=== PATIENT | male | born 1955 | race Caucasian/White ===

== ENCOUNTER 2020-01-04 09:04 | Inpatient (IN) | payer OTHER, MEDICAID ==
[~2020-01-04] VITALS: Ht 175.3 cm; Wt 77.6 kg
--- NOTE | ~2020-01-04 | EMS ---
[address] [address] EMS Patient Care Report Name: ULISES MARINELLI Room: [address] IN M..#: [id number] Admission: 01/04/20 Attend Phys: Kenny Forde MD Discharge: 01/06/20 Date of : 51 Report #: [id number] THIS REPORT FOR: //name// Report Transmitted: 01/06/2020 11:57 EMS Care Summary [facility] Incident [phone] @ 01/04/2020 08:24 Incident Location [address] [facility] Patient ULISES MARINELLI Male, 64 Years 1955 Patient Address Patient History Chronic Obstructive Pulmonary Disease (COPD),Bipolar II Disorder,Hypothyroidism,Back Pain (Chronic), Patient Allergies Codeine, Patient Medications Levothyroxine, Lisinopril, Topiramate, Divalproex Sodium, Zyprexa, Bupropion, Meloxicam, Polyethlene Glycol, Fluoxetine, Trazodone, Chief Complaint Falling Disposition Transported No Lights/[place] Dispatch Reason Falls Transported To [facility] Narrative Dispatched o above address on a patient needing medical evaluation. Med 1 arrived on scene of an assisted living facility and was met in hallway of the patient's room by staff member who stated the patient had been falling the past two weeks and needs to be seen at the hospital. Staff member also reported that the patient is ambulatory but uses a cane. As I was assessing the patient [facility] [address] [place] [address] EMS Patient Care Report Name: ULISES MARINELLI Room: [address] IN .R.#: [id number] Admission: 01/04/20 Attend Phys: Kenny Forde MD Discharge: 01/06/20 Date of : 51 Report #: [id number] the staff member handed me the phone and said the patient's attending physician wanted to speak to me. I spoke to a female who identified herself as Dr. Deena Ochoa from [place] and she is the patient's physician and she wanted him transported for his recent falling. The patient's hospital choice was [facility]. The patient was sitting in a wheel chair, in his room, alert and in no obvious signs of distress or life threats. The patient explained to me that he had been falling a lot and felt "lost" and wanted to go to the hospital. I moved the patient from his room to the front door via wheel chair. The patient was assisted to a standing position and sat back down on the stretcher at the front door with no complications. The patient was moved from the front door to the ambulance via stretcher and loaded into the ambulance and transported to [facility]. While en route to the hospital, Vitals, patient hx, 12 lead, and blood glucose analysis performed. The patient denied any chest pain, shortness of breath, or abnormal pain. The patient's GCS was 15 and he answered all questions appropriately. Radio report to [facility] ER with no orders received. Patient tolerated the transport with no complications. Patient care transferred to ER nurse bed #4. Initial Vitals @08:44P: 62,R: 16,BP: 118/63,GCS: 15,Glucose: 140,SpO2: 96,Revised Trauma: 12, @08:55P: 61,R: 16,BP: 123/65,GCS: 15,SpO2: 96,Revised Trauma: 12, Assessments @08:45MENTAL:Person Oriented,Time Oriented,Place Oriented,Event Oriented,SKIN:No Abnormalities,HEENT:Head/Face: No Abnormalities,Eyes: No Abnormalities,LUNG SOUNDS:General: No Abnormalities,Left Upper: No Abnormalities,Right Upper: No Abnormalities,Left Lower: No Abnormalities,Right Lower: No Abnormalities,ABDOMEN:General: No Abnormalities,Left Upper: No Abnormalities,Right Upper: No Abnormalities,Left Lower: No Abnormalities,Right Lower: No Abnormalities,PELVIS//GI:No Abnormalities,EXTREMITIES:Left Arm: No Abnormalities,Right Arm: No Abnormalities,Left Leg: No Abnormalities,Right Leg: No Abnormalities,PULSE:Radial: 2+ Normal,NEURO:No Abnormalities, Impression Generalized Weakness Timeline 08:24,Call Received 08:24,Dispatched 08:24,En Route 08:25,On Scene 08:26,At Patient 08:38,Depart Scene 08:44,BP: 118/63 M,PULSE: 62,RR: 16 R,SPO2: 96 Ox,ETCO2: ,B,PAIN: ,GCS: 15, [place] [address] EMS Patient Care Report Name: ULISES MARINELLI Room: [address] IN ..#: [id number] Admission: 04/23/20 Attend Phys: Kenny Forde MD Discharge: 01/06/20 Date of : 51 Report #: [id number] 08:55,BP: 123/65 M,PULSE: 61,RR: 16 R,SPO2: 96 Ox,ETCO2: ,BG: ,PAIN: ,GCS: 15, 09:00,At Destination 09:01,Transfer Patient 09:36,Call Closed 09:36,In District Disclaimer v1.1 Copyright 2020 [employer] This EMS Care Summary contains data elements from the applicable legal record (which may be displayed differently). It is designed to provide pertinent information for the following purposes: continuity of care, clinical quality, and state data reporting. The complete legal record is available to ED staff and administrators of the receiving hospital in [facility]'s Patient Tracker. All data is provided "as is."
[~2020-01-04 09:04] MED LIST: BUPROPION XL300 MG PO; BUSPIRONE PO; CLEOCIN HCL300 MG PO; DEPAKOTE ER500 M1 PO; LEVOTHYROXINE PO; PROTONIX40 MG PO; ZYPREXA20 MG PO
[2020-01-04 09:12] VITALS: BP 153/75
[2020-01-04] MEDS ORDERED: MIRALAX119 GM PO (09:19)
[2020-01-04] MEDS ORDERED: MELOXICAM15 MG PO (09:19)
[2020-01-04] MEDS ORDERED: PROZAC20 M1 PO (09:19)
[2020-01-04] MEDS ORDERED: ZESTRIL20 MG PO (09:19)
[2020-01-04] MEDS ORDERED: MILK OF MA400 MG/5 M PO (09:19)
[2020-01-04] MEDS ORDERED: TRAZODONE 150150 M1 PO (09:20)
[2020-01-04 09:51] LABS: ABSOLUTE BASOPHILS 0.1 thou/uL (0.0-0.2); ABSOLUTE EOSINOPHILS 0.1 thou/uL (0.0-0.7); ABSOLUTE LYMPHOCYTES 2.3 thou/uL (0.8-5.3); ABSOLUTE MONOCYTES 0.6 thou/uL (0.0-1.2); ABSOLUTE NEUTROPHILS 1.6 thou/uL (1.6-8.1); BASOPHILS 1.2 %; EOSINOPHILS 1.7 %; HEMATOCRIT 38.4 % (42.0-52.0); HEMOGLOBIN 13.1 gm/dL (14.0-18.0); LYMPHOCYTES 50.2 %; MCH 33.3 pg (26.0-34.0); MCHC 34.2 g/dL (28.0-37.0); MCV 97.4 fL (80.0-100.0); MONOCYTES 12.7 %; MPV 9.2 fl. (7.2-11.1); NUCLEATED RBCS 0 /100WBC; PLATELET COUNT* 86 thou/uL (150-400); POLYS 34.2 %; RBC 3.95 mil/uL (4.50-6.00); RDW-CV 15.6 % (10.5-14.5); WBC 4.5 thou/uL (4.0-11.0)
[2020-01-04 10:15] LABS: CALCIUM 9.2 mg/dL (8.5-10.1); CREATININE 1.7 mg/dL (0.6-1.3); POTASSIUM 3.5 mmol/L (3.5-5.1)
[2020-01-04 10:20] LABS: ALBUMIN 3.2 g/dL (3.4-5.0); TOTAL BILIRUBIN 0.5 mg/dL (<0.1-1.0); TOTAL PROTEIN 6.9 g/dL (6.4-8.2)
[2020-01-04 10:21] LABS: APTT 25.7 Seconds (25.0-31.3); INR 1.1; PROTIME 11.5 Seconds (9.20-11.50)
[2020-01-04 10:25] LABS: URINE BILIRUBIN NEGATIVE (Negative); URINE BLOOD 1+ (Negative); URINE CLARITY CLEAR; URINE COLOR YELLOW; URINE GLUCOSE-RANDOM NEGATIVE (Negative); URINE KETONES NEGATIVE (Negative); URINE LEUKOCYTES-REFLEX NEGATIVE (Negative); URINE NITRITE-REFLEX NEGATIVE (Negative); URINE PROTEIN NEGATIVE (Negative); URINE UROBILINOGEN 0.2 E.U./dl (0.2-1.0)
[2020-01-04 10:52] LABS: BACTERIA-REFLEX 1-9 Few /HPF (None Seen); CASTS None Seen /LPF (None Seen); CRYSTALS None Seen /LPF (None Seen); MUCUS None Seen strn/LPF (None Seen); SQUAMOUS 4-10 Moderate /LPF (0-3); URINE RBC 3-10 Few /HPF (0-2); URINE WBC-REFLEX 0-5 Rare /HPF (0-5)
[2020-01-04 12:54] VITALS: BP 132/76
[2020-01-04 13:30] VITALS: BP 144/80
--- NOTE | 2020-01-04 13:31 | EKG ---
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
[2020-01-04 13:56] LABS: URINE POTASSIUM-RANDOM 46.2 mmol/L
--- NOTE | 2020-01-04 14:42 | NUR ---
PT ADMITTED TO TELEMTRY ROOM 207 AT APPROXIMATELY 1330 WITH AN ADMITTING DIAGNOSIS OF ARF, WEAKNESS, RHABDOMYLOSIS. PT IS ALERT AND ABLE TO ANSWER ALL ORIENTATION QUESTIONS. PT DENIES PAIN, SOA, N/V/D, CP. REFER TO COMPUTER CHARTING FOR FURTHER DETAILS. FALL PRECAUTIONS AND HOURLY ROUNDING IN PLACE FOR PT SAFETY. CLWR
[2020-01-04 16:40] VITALS: BP 152/83
[2020-01-04 20:00] VITALS: BP 158/91
[2020-01-05 00:25] VITALS: BP 130/80
[2020-01-05 04:36] VITALS: BP 153/94
[2020-01-05 04:54] LABS: HEMATOCRIT 37.3 % (42.0-52.0); HEMOGLOBIN 12.9 gm/dL (14.0-18.0); MCH 33.8 pg (26.0-34.0); MCHC 34.5 g/dL (28.0-37.0); MCV 98.1 fL (80.0-100.0); MPV 9.2 fl. (7.2-11.1); RBC 3.81 mil/uL (4.50-6.00); RDW-CV 15.5 % (10.5-14.5)
[2020-01-05 05:09] LABS: CALCIUM 8.3 mg/dL (8.5-10.1); CREATININE 1.3 mg/dL (0.6-1.3); POTASSIUM 3.4 mmol/L (3.5-5.1)
[2020-01-05 05:14] LABS: ALBUMIN 2.9 g/dL (3.4-5.0); MAGNESIUM 2.2 mg/dL (1.8-2.4); TOTAL BILIRUBIN 0.4 mg/dL (<0.1-1.0); TOTAL PROTEIN 6.2 g/dL (6.4-8.2)
[2020-01-05 06:12] LABS: HEPATITIS B SURFACE AG Negative (Negative)
[2020-01-05 07:50] VITALS: BP 158/87
--- NOTE | 2020-01-05 08:13 | NUR ---
ASSUMED PATIENT CARE AT 1900. ASSESSMENT COMPLETED CHARTED. PATIENT IS NSR ON THE MONITOR. HOURLY ROUNDING IN PLACE FOR PATIENT SAFETY. CLWR.
--- NOTE | 2020-01-05 08:14 | NUR ---
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
[2020-01-05 12:00] VITALS: BP 119/81; BP 133/79; BP 135/81; BP 144/86
--- NOTE | 2020-01-05 13:58 | NUR ---
MELVIN called pt room with no answer. MELVIN called [facility] in [place] where pt lives. MELVIN provided [facility] with updated information and informed that there would be a possibility of pt to dc home on Wednesday. [facility] does not provide transportation on weekends and would need pt brother to transport or call [facility] to transport if needed. Fax dc information to [facility], phone number and fax number are the same: [phone]
[2020-01-05 16:00] VITALS: BP 118/74
[2020-01-05 20:00] VITALS: BP 148/90
[2020-01-06] VITALS: BP 140/83
[2020-01-06 04:00] VITALS: BP 130/80
[2020-01-06 07:49] VITALS: BP 141/84
--- NOTE | 2020-01-06 07:54 | NUR ---
ASSUMED PATIENT CARE AT 1900. ASSESSMENT COMPLETED CHARTED. PATIENT IS NSR ON THE MONITOR. HOURLY ROUNDING IN PLACE FOR PATIENT SAFETY. CLWR.
--- NOTE | 2020-01-06 08:28 | NUR ---
ASSUMED CARE OF PT THIS AM AROUND 0715- YEAST FERMENTATION ATTENDANT IN PLACE ORDERED, TRACING SR- UPON ASSESSMENT PT NOTED TO BE RESTING IN BED, READY TO EAT THIS AM- PT A&O X2-3 WITH NOTED INTERMITENT CONFUSSION- CONT VS INCONT OF BOWEL AND BLADDER- ASSIST X1 WITH TRANSFERS- LCTA, RESP EVEN AND UN-LABORED- VSS, O2 SAT 96% ON RA- ABD SOFT/ROUND/NON-TENDER, BS X4 QUADS- LAST BM NOTED 01/05/20- IV NOTED TO LEFT AC INTACT AND SL- PT DENIES ANY C/O PAIN/DISCOMFORT AT THIS TIME- CALL LIGHT AND PERSONAL BELONGINGS WITH IN REACH- BED ALARM IN PLACE R/T SAFETY/NEEDS- ALL NEEDS MET AT THIS TIME-WCTM
[2020-01-06] MEDS ORDERED: ZYPREXA 5 MG TAB5 M1 PO (09:04)
[2020-01-06] MEDS ORDERED: TRAZODONE HCL100 MG PO (09:04)
[2020-01-06] MEDS ORDERED: WELLBUTRIN XL150 MG PO (09:04)
[2020-01-06] MEDS ORDERED: PROZAC10 M1 PO (09:04)
[2020-01-06 09:32] VITALS: BP 141/84
== END 2020-01-06 12:15 | DRG 91 ==
LOC: M.ERS 09:04 → M.2W 10:58 → M.TBA-ER 10:58 → M.2W 13:23
PROVIDERS: Family Medicine; ADMIT Internal Medicine
DX: G92 Toxic encephalopathy (principal); N17.0 Acute kidney failure with tubular necrosis; E43 Unspecified severe protein-calorie malnutrition; B17.9 Acute viral hepatitis, unspecified; M62.82 Rhabdomyolysis; E87.2 Acidosis; F25.9 Schizoaffective disorder, unspecified; G89.29 Other chronic pain; M54.9 Dorsalgia, unspecified; J44.9 Chronic obstructive pulmonary disease, unspecified; F31.9 Bipolar disorder, unspecified; E03.9 Hypothyroidism, unspecified; I10 Essential (primary) hypertension; E86.9 Volume depletion, unspecified; R27.0 Ataxia, unspecified; T50.905A Adverse effect of unspecified drugs, medicaments and biological substances, initial encounter; Z68.25 Body mass index [BMI] 25.0-25.9, adult; Z79.899 Other long term (current) drug therapy; Z88.6 Allergy status to analgesic agent; Z88.5 Allergy status to narcotic agent; Z88.0 Allergy status to penicillin; Y92.89 Other specified places as the place of occurrence of the external cause

== ENCOUNTER 2020-04-06 12:35 | Emergency (ER) | payer OTHER, MEDICAID ==
[~2020-04-06] VITALS: Ht 175.3 cm; Wt 71.2 kg
--- NOTE | ~2020-04-06 | EMS ---
[address] [place] [address] EMS Patient Care Report Name: ULISES MARINELLI [id number] Admission: 04/06/20 Attend Phys: Discharge: Date of : 51 Report #: [id number] THIS REPORT FOR: //name// Report Transmitted: 04/06/2020 12:12 EMS Care Summary [facility] Incident [phone] @ 04/06/2020 12:00 Incident Location [address] [place] [address] Patient ULISES MARINELLI Male, 64 Years 1955 Patient Address [address] [place] [address] Patient History Hypertension (HTN),Hypothyroidism,Schizoaffective Disorder,Back Pain (Chronic), Patient Allergies Codeine, Patient Medications Bupropion, Fluoxetine, Bisacodyl, Divalproex Sodium, Trazodone, Levothyroxine, Lisinopril, Melatonin, Olanzapine, Topiramate, Meloxicam, Chief Complaint Psychotic Episode Disposition Transported Lights/[place] Dispatch Reason Psychiatric Problem/Abnormal Behavior/Suicide Attempt Transported To [facility] Narrative Med 1 and Engine 2 were dispatched for a [age] year-old male c/o a psychotic episode lasting two days. 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 The patient reported that he needed to go to a psychiatric facility to get his medications adjusted. The patient was AOx3, strong, regular bilateral radial pulses. The patient had 2 grocery bags full of clothes [place] [employer] was on scene also and searched the bags and found nothing. The patient denied being suicidal. Patient was assisted to the ambulance and secured to the stretcher. Med 1 went en route to [facility]. In the ambulance, patient's vitals were obtained and monitored throughout transport with no change. Hospital report was given via radio with no questions or orders requested or received. Med 1 arrived at the hospital. Patient was moved into the ER without incident to room 3. Patient care was transferred to ER staff. Med 1 returned back into service. [id number] KShook Initial Vitals @12:12P: 84,R: 18,BP: 120/84,GCS: 15,SpO2: 99,Revised Trauma: 12, @12:28P: 82,R: 18,BP: 122/84,GCS: 15,SpO2: 98,Revised Trauma: 12, Assessments @12:19MENTAL:No Abnormalities,SKIN:No Abnormalities,HEENT:Head/Face: No Abnormalities,Eyes: No Abnormalities,Neck/Airway: No Abnormalities,LUNG SOUNDS:ABDOMEN:PELVIS//GI:EXTREMITIES:Left Arm: No Abnormalities,Right Arm: No Abnormalities,Left Leg: No Abnormalities,Right Leg: No Abnormalities,PULSE:NEURO: Impression Behavioral/psychiatric episode Timeline 12:00,Call Received 12:00,Dispatched 12:02,En Route 12:04,On Scene 12:05,At Patient 12:09,Depart Scene 12:12,BP: 120/84 M,PULSE: 84,RR: 18 R,SPO2: 99 Ox,ETCO2: ,BG: ,PAIN: ,GCS: 15, 12:28,BP: 122/84 M,PULSE: 82,RR: 18 R,SPO2: 98 Ox,ETCO2: ,BG: ,PAIN: ,GCS: 15, 12:29,At Destination 12:56,Call Closed 12:56,[place] [address] EMS Patient Care Report Name: ULISES MARINELLI Room: [facility]#: [id number] Admission: 04/06/20 Attend Phys: Discharge: Date of : 51 Report #: [id number] Disclaimer v1.1 Copyright 2020 [employer] This EMS Care Summary contains data elements from the applicable legal record (which may be displayed differently). It is designed to provide pertinent information for the following purposes: continuity of care, clinical quality, and state data reporting. The complete legal record is available to ED staff and administrators of the receiving hospital in [employer]'s Patient Tracker. All data is provided "as is."
[~2020-04-06 12:35] MED LIST changes: +MELOXICAM15 MG PO; +MILK OF MA400 MG/5 M PO; +MIRALAX119 GM PO; +PROZAC10 M1 PO; +PROZAC20 M1 PO; +TRAZODONE 150150 M1 PO; +TRAZODONE HCL100 MG PO; +WELLBUTRIN XL150 MG PO; +ZESTRIL20 MG PO; +ZYPREXA 5 MG TAB5 M1 PO
[2020-04-06 12:51] LABS: URINE BILIRUBIN NEGATIVE (Negative); URINE BLOOD NEGATIVE (Negative); URINE CLARITY CLEAR; URINE COLOR YELLOW; URINE GLUCOSE-RANDOM NEGATIVE (Negative); URINE KETONES NEGATIVE (Negative); URINE LEUKOCYTES-REFLEX NEGATIVE (Negative); URINE NITRITE-REFLEX NEGATIVE (Negative); URINE PROTEIN NEGATIVE (Negative); URINE UROBILINOGEN 0.2 E.U./dl (0.2-1.0)
[2020-04-06 13:00] LABS: AMP/METHAMP Negative (Negative); BARBITURATES Negative (Negative); BENZODIAZEPINES Negative (Negative); COCAINE Negative (Negative); METHADONE Negative (Negative); OPIATES Negative (Negative); PCP Negative (Negative); THC Negative (Negative)
[2020-04-06] MEDS ORDERED: TOPAMAX100 MG PO (13:01)
[2020-04-06 13:04] LABS: ABSOLUTE BASOPHILS 0.1 thou/uL (0.0-0.2); ABSOLUTE LYMPHOCYTES 2.5 thou/uL (0.8-5.3); ABSOLUTE MONOCYTES 0.5 thou/uL (0.0-1.2); ABSOLUTE NEUTROPHILS 5.2 thou/uL (1.6-8.1); BASOPHILS 1.4 %; EOSINOPHILS 0.6 %; HEMATOCRIT 40.8 % (42.0-52.0); HEMOGLOBIN 14.2 gm/dL (14.0-18.0); LYMPHOCYTES 29.7 %; MCH 34.3 pg (26.0-34.0); MCHC 34.8 g/dL (28.0-37.0); MCV 98.6 fL (80.0-100.0); MONOCYTES 6.2 %; MPV 8.2 fl. (7.2-11.1); NUCLEATED RBCS 0 /100WBC; PLATELET COUNT* 184 thou/uL (150-400); POLYS 62.1 %; RBC 4.14 mil/uL (4.50-6.00); WBC 8.4 thou/uL (4.0-11.0)
[2020-04-06 13:16] LABS: CALCIUM 9.3 mg/dL (8.5-10.1); CREATININE 1.4 mg/dL (0.6-1.3); POTASSIUM 3.7 mmol/L (3.5-5.1)
[2020-04-06 13:18] LABS: ACETAMINOPHEN < 2 ug/mL (10-30); ALCOHOL < 10 mg/dL (<10); SALICYLATE 3.4 mg/dL (2.8-20.0)
[2020-04-06 13:20] LABS: TOTAL BILIRUBIN 0.5 mg/dL (<0.1-1.0); TOTAL PROTEIN 7.8 g/dL (6.4-8.2)
[2020-04-06 16:01] VITALS: BP 130/82
== END 2020-04-06 16:01 | disposition home or self-care (01) ==
LOC: M.ERS 12:35
PROVIDERS: Emergency Medicine Emergency Medical Services
DX: F20.9 Schizophrenia, unspecified (principal); I10 Essential (primary) hypertension; Z88.5 Allergy status to narcotic agent; Z88.0 Allergy status to penicillin; Z79.899 Other long term (current) drug therapy

== ENCOUNTER 2020-04-30 11:52 | Emergency (ER) | payer OTHER, MEDICAID ==
[~2020-04-30] VITALS: Ht 175.3 cm; Wt 66.7 kg
[~2020-04-30 11:52] MED LIST changes: +TOPAMAX100 MG PO
[2020-04-30] MEDS ORDERED: GENTLE LAXATIVE5 M1 PO (12:07)
[2020-04-30] MEDS ORDERED: LEVO-T25 MCG PO (12:07)
[2020-04-30] MEDS ORDERED: ZESTRIL20 MG PO (12:07)
[2020-04-30] MEDS ORDERED: DIVALPROEX SOD500 M1 PO (12:07)
[2020-04-30] MEDS ORDERED: OLANZAPINE-FLU1 EACH PO (12:08)
[2020-04-30] MEDS ORDERED: TOPAMAX100 MG PO (12:08)
[2020-04-30] MEDS ORDERED: MILK OF MA400 MG/5 M PO (12:08)
[2020-04-30] MEDS ORDERED: MELATONIN10 M3 PO (12:08)
[2020-04-30] MEDS ORDERED: MELOXICAM15 MG PO (12:08)
[2020-04-30] MEDS ORDERED: ALPRAZOLAM ER1 MG PO (12:09)
[2020-04-30] MEDS ORDERED: TRAZODONE HCL100 MG PO (12:09)
[2020-04-30] MEDS ORDERED: BANOPHEN25 MG PO (12:10)
[2020-04-30] MEDS ORDERED: MAPAP ARTHRITI650 MG PO (12:10)
[2020-04-30 12:21] LABS: URINE BILIRUBIN NEGATIVE (Negative); URINE BLOOD NEGATIVE (Negative); URINE CLARITY CLEAR; URINE COLOR YELLOW; URINE GLUCOSE-RANDOM NEGATIVE (Negative); URINE KETONES NEGATIVE (Negative); URINE LEUKOCYTES-REFLEX NEGATIVE (Negative); URINE NITRITE-REFLEX NEGATIVE (Negative); URINE PROTEIN NEGATIVE (Negative); URINE SPECIFIC GRAVITY 1.015 (1.005-1.030)
[2020-04-30 12:29] LABS: AMP/METHAMP Negative (Negative); BARBITURATES Negative (Negative); BENZODIAZEPINES POSITIVE (Negative); COCAINE Negative (Negative); METHADONE Negative (Negative); OPIATES Negative (Negative); PCP Negative (Negative); THC Negative (Negative)
[2020-04-30 12:41] LABS: ABSOLUTE BASOPHILS 0.1 thou/uL (0.0-0.2); ABSOLUTE EOSINOPHILS 0.1 thou/uL (0.0-0.7); ABSOLUTE LYMPHOCYTES 2.9 thou/uL (0.8-5.3); ABSOLUTE MONOCYTES 0.4 thou/uL (0.0-1.2); ABSOLUTE NEUTROPHILS 2.1 thou/uL (1.6-8.1); BASOPHILS 0.9 %; EOSINOPHILS 2.4 %; HEMATOCRIT 40.3 % (42.0-52.0); HEMOGLOBIN 13.9 gm/dL (14.0-18.0); LYMPHOCYTES 51.6 %; MCH 34.4 pg (26.0-34.0); MCHC 34.6 g/dL (28.0-37.0); MCV 99.4 fL (80.0-100.0); MONOCYTES 6.9 %; MPV 8.3 fl. (7.2-11.1); NUCLEATED RBCS 0 /100WBC; PLATELET COUNT* 167 thou/uL (150-400); POLYS 38.2 %; RBC 4.06 mil/uL (4.50-6.00); RDW-CV 14.1 % (10.5-14.5); WBC 5.5 thou/uL (4.0-11.0)
[2020-04-30 12:44] LABS: CALCIUM 9.2 mg/dL (8.5-10.1); CREATININE 1.2 mg/dL (0.6-1.3)
[2020-04-30 12:54] LABS: ALBUMIN 3.8 g/dL (3.4-5.0); TOTAL BILIRUBIN 0.3 mg/dL (<0.1-1.0); TOTAL PROTEIN 7.5 g/dL (6.4-8.2)
[2020-04-30 12:55] LABS: ACETAMINOPHEN < 2 ug/mL (10-30); ALCOHOL < 10 mg/dL (<10); SALICYLATE 3.9 mg/dL (2.8-20.0)
[2020-05-01 15:49] VITALS: BP 134/74
== END 2020-05-01 15:51 | disposition still patient (30) ==
LOC: M.ERS 11:52
PROVIDERS: Family Medicine
DX: R45.851 Suicidal ideations (principal); I10 Essential (primary) hypertension; Z20.828 Contact with and (suspected) exposure to other viral communicable diseases; Z88.0 Allergy status to penicillin; Z88.6 Allergy status to analgesic agent

== ENCOUNTER 2020-05-21 08:41 | Emergency (ER) | payer OTHER, MEDICAID ==
[~2020-05-21] VITALS: Ht 175.3 cm; Wt 66.7 kg
[~2020-05-21 08:41] MED LIST changes: +ALPRAZOLAM ER1 MG PO; +B-12500 MCG PO; +BANOPHEN25 MG PO; +DEPAKOTE500 MG PO; +DIVALPROEX SOD500 M1 PO; +FOLIC ACID1 MG PO; +GENTLE LAXATIVE5 M1 PO; +HALDOL 0.5 MG0.5 MG PO; +LEVO-T25 MCG PO; +MAPAP ARTHRITI650 MG PO; +MELATONIN10 M3 PO; +OLANZAPINE-FLU1 EACH PO; +TRAZODONE HCL50 MG PO; +VITAMIN D325 MC1 PO; +ZYPREXA 5 MG TAB5 MG PO
[2020-05-21 09:30] LABS: HEMATOCRIT 37.1 % (42.0-52.0); MCH 34.4 pg (26.0-34.0); MCHC 34.9 g/dL (28.0-37.0); MCV 98.6 fL (80.0-100.0); MPV 8.3 fl. (7.2-11.1); RBC 3.76 mil/uL (4.50-6.00); RDW-CV 14.4 % (10.5-14.5); WBC 6.2 thou/uL (4.0-11.0)
[2020-05-21 09:39] LABS: CALCIUM 8.8 mg/dL (8.5-10.1); CREATININE 1.3 mg/dL (0.6-1.3); POTASSIUM 3.6 mmol/L (3.5-5.1)
[2020-05-21 09:49] LABS: ALBUMIN 3.5 g/dL (3.4-5.0); TOTAL BILIRUBIN 0.3 mg/dL (<0.1-1.0)
[2020-05-21 09:55] LABS: SALICYLATE < 2.8 mg/dL (2.8-20.0)
[2020-05-21 09:59] LABS: ACETAMINOPHEN < 2 ug/mL (10-30); ALCOHOL < 10 mg/dL (<10)
[2020-05-21 10:54] LABS: URINE BILIRUBIN NEGATIVE (Negative); URINE BLOOD NEGATIVE (Negative); URINE CLARITY SL CLOUDY; URINE COLOR YELLOW; URINE GLUCOSE-RANDOM NEGATIVE (Negative); URINE KETONES NEGATIVE (Negative); URINE LEUKOCYTES NEGATIVE (Negative); URINE NITRITE NEGATIVE (Negative); URINE PROTEIN NEGATIVE (Negative); URINE SPECIFIC GRAVITY 1.015 (1.005-1.030)
[2020-05-21 11:01] LABS: AMP/METHAMP Negative (Negative); BARBITURATES Negative (Negative); BENZODIAZEPINES Negative (Negative); COCAINE Negative (Negative); METHADONE Negative (Negative); OPIATES Negative (Negative); PCP Negative (Negative); THC Negative (Negative)
[2020-05-21 14:24] VITALS: BP 128/77
== END 2020-05-21 14:27 | disposition home or self-care (01) ==
LOC: M.ERS 08:41
PROVIDERS: Personal Emergency Response Attendant
DX: F91.9 Conduct disorder, unspecified (principal); F25.9 Schizoaffective disorder, unspecified; I10 Essential (primary) hypertension; Z79.899 Other long term (current) drug therapy; Z88.5 Allergy status to narcotic agent; Z88.0 Allergy status to penicillin

== ENCOUNTER 2020-06-24 00:29 | Emergency (ER) | payer OTHER, MEDICAID ==
[~2020-06-24] VITALS: Ht 175.3 cm; Wt 66.7 kg
[2020-06-24 01:05] LABS: URINE BILIRUBIN NEGATIVE (Negative); URINE BLOOD NEGATIVE (Negative); URINE CLARITY CLEAR; URINE COLOR YELLOW; URINE GLUCOSE-RANDOM NEGATIVE (Negative); URINE KETONES NEGATIVE (Negative); URINE LEUKOCYTES-REFLEX NEGATIVE (Negative); URINE NITRITE-REFLEX NEGATIVE (Negative); URINE PROTEIN NEGATIVE (Negative); URINE SPECIFIC GRAVITY 1.015 (1.005-1.030); URINE UROBILINOGEN 0.2 E.U./dl (0.2-1.0)
[2020-06-24 01:08] LABS: ABSOLUTE BASOPHILS 0.1 thou/uL (0.0-0.2); ABSOLUTE EOSINOPHILS 0.1 thou/uL (0.0-0.7); ABSOLUTE LYMPHOCYTES 2.8 thou/uL (0.8-5.3); ABSOLUTE MONOCYTES 0.5 thou/uL (0.0-1.2); ABSOLUTE NEUTROPHILS 4.2 thou/uL (1.6-8.1); BASOPHILS 1.1 %; EOSINOPHILS 1.3 %; HEMATOCRIT 40.5 % (42.0-52.0); HEMOGLOBIN 13.9 gm/dL (14.0-18.0); LYMPHOCYTES 36.1 %; MCH 33.8 pg (26.0-34.0); MCHC 34.4 g/dL (28.0-37.0); MCV 98.1 fL (80.0-100.0); MONOCYTES 7.1 %; MPV 8.3 fl. (7.2-11.1); NUCLEATED RBCS 0 /100WBC; PLATELET COUNT* 183 thou/uL (150-400); POLYS 54.4 %; RBC 4.13 mil/uL (4.50-6.00); RDW-CV 14.7 % (10.5-14.5); WBC 7.7 thou/uL (4.0-11.0)
[2020-06-24 01:12] LABS: AMP/METHAMP Negative (Negative); BARBITURATES Negative (Negative); BENZODIAZEPINES Negative (Negative); COCAINE Negative (Negative); METHADONE Negative (Negative); OPIATES Negative (Negative); PCP Negative (Negative); THC Negative (Negative)
[2020-06-24 01:18] LABS: CALCIUM 9.7 mg/dL (8.5-10.1); CREATININE 1.3 mg/dL (0.6-1.3); POTASSIUM 3.3 mmol/L (3.5-5.1)
[2020-06-24 01:23] LABS: TOTAL BILIRUBIN 0.5 mg/dL (<0.1-1.0); TOTAL PROTEIN 8.1 g/dL (6.4-8.2)
[2020-06-24 01:36] LABS: ACETAMINOPHEN < 2 ug/mL (10-30); ALCOHOL < 10 mg/dL (<10)
[2020-06-24 05:38] VITALS: BP 122/78
== END 2020-06-24 05:44 | disposition still patient (30) ==
LOC: M.ERS 00:29
PROVIDERS: Emergency Medicine
DX: R45.4 Irritability and anger (principal); I10 Essential (primary) hypertension; Z79.899 Other long term (current) drug therapy; Z88.0 Allergy status to penicillin; Z88.6 Allergy status to analgesic agent